=== PATIENT | male | born 1945 | race African-American/Black ===

== ENCOUNTER 2023-08-02 11:43 | Inpatient (IN) | payer OTHER ==
[2023-08-02] MEDS ORDERED: ACETAMINOPHEN INJECTION 100 ML IVPB ONE (13:22)
[2023-08-02] MEDS ORDERED: FOLIC ACID 1 MG TABLET (FP) ONE (13:22)
[2023-08-02] MEDS ORDERED: THIAMINE HCL 200 MG/2 ML VIAL ONE (13:22)
[2023-08-02] MEDS ORDERED: FAMOTIDINE 10 MG/ML VIAL IVPB ONE (13:23)
[2023-08-02] MEDS ORDERED: MAG HYDROX/AL HYDROX/SIMETH 30 ML UNIT-DOSE CUP ONE (13:23)
[2023-08-02 13:34] LABS: BASO % 0.2 % (0-2.0); EOS % 0.1 % (0-4.5); HEMOGLOBIN 8.3 GM/dL (11.7-16.9); LYMPH % 13.4 % (8-40); MCH 32.3 pg (25.7-33.7); MCHC 33.2 g/dl (32.0-35.9); MEAN CELL VOLUME 97.2 fl (80-96); MEAN PLT VOLUME 7.6 fl (7.5-11.1); MONO % 3.4 % (3.8-10.2); NEUT % 82.9 % (42.8-82.8); PLATELET COUNT 275 10^3/uL (134-434); RBC 2.57 M/mm3 (4.00-5.60); RDW 13.4 % (11.9-15.9); WHITE BLOOD COUNT 12.8 K/mm3 (4.0-10.0)
[2023-08-02 13:39] LABS: INR 1.13 (0.83-1.09); PROTHROMBIN TIME (PATIENT) 12.7 SEC (9.7-13.0)
[2023-08-02 13:41] LABS: ACTIVATED PTT 31.2 SECONDS (25.2-36.5)
[2023-08-02 13:48] LABS: THROAT:GRP A STREP NOT DETECTED (NOTDETECTED)
[2023-08-02 13:58] LABS: CALCIUM 8.4 mg/dL (8.5-10.1)
[2023-08-02] MEDS: FOLIC ACID 1 MG TABLET (FP) PO ONE (13:58)
[2023-08-02] MEDS: MAG HYDROX/AL HYDROX/SIMETH 30 ML UNIT-DOSE CUP PO ONE (13:58)
[2023-08-02 13:59] LABS: ALBUMIN 2.7 g/dl (3.4-5.0); BLOOD UREA NITROGEN 59.4 mg/dL (7-18); MAGNESIUM 2.2 mg/dL (1.8-2.4)
[2023-08-02 14:01] LABS: CREATININE 1.8 mg/dL (0.55-1.3); PHOSPHOROUS 3.2 mg/dL (2.5-4.9)
[2023-08-02 14:03] LABS: BILIRUBIN,TOTAL 0.6 mg/dL (0.2-1)
[2023-08-02 14:12] LABS: ERYTHROCYTE SEDIMENTATION RATE 125 mm/hr (0-20)
[2023-08-02] MEDS ORDERED: VANCOMYCIN 1,000 MG in DEXTROSE 5%-WATER - 250 ML IVPB ONE (14:21)
[2023-08-02] MEDS: ACETAMINOPHEN 1000 MG/100 ML BAG IVPB ONE (14:22)
[2023-08-02] MEDS: FAMOTIDINE 20 MG/50 ML IVPB 20 MG/50 ML MG IVPB ONE (14:23)
[2023-08-02] MEDS: PIPERACILLIN/TAZOB 4.5 GM 4.5 GM in DEXTROSE 5%-WATER 100 ML IVPB ONE (14:23)
[2023-08-02] MEDS: LACTATED RINGERS SOLUTION 1000 ML INFUS.BAG IV ONE (14:23)
[2023-08-02] MEDS: THIAMINE HCL 200 MG/2 ML VIAL IVPB ONE (14:23)
[2023-08-02] MEDS: VANCOMYCIN/WATER 1250 MG 1,250 MG/250 ML BAG IVPB ONE (14:23)
[2023-08-02] MEDS ORDERED: POTASSIUM CHLORIDE ORAL LIQUID 20 MEQ/15 ML ONE (14:42)
[2023-08-02] MEDS ORDERED: PIPERACILLIN/TAZOB 2.25 GM 2.25 GM/50 ML BAG IVPB ONE (14:42)
[2023-08-02] MEDS: POTASSIUM CHLORIDE ORAL LIQUID 20 MEQ/15 ML PO ONE (14:52)
[2023-08-02] MEDS: PIPERACILLIN/TAZOB 2.25 GM 2.25 GM in DEXTROSE 5%-WATER - 50 ML IVPB ONE (14:52)
[2023-08-02] MEDS ORDERED: LORazepam 1 MG TABLET PO PRN (15:40)
[2023-08-02 16:50] LABS: EPI CELLS 28 /uL (0-25.1); HYALINE CASTS 40 /uL (0-3.1); URINE APPEARANCE TURBID; URINE BACTERIA 68 /uL (0-1359); URINE BILIRUBIN NEGATIVE (NEGATIVE); URINE COLOR YELLOW; URINE GLUCOSE (UA) NEGATIVE (NEGATIVE); URINE KETONE NEGATIVE (NEGATIVE); URINE LEUK ESTERASE 3+ (NEGATIVE); URINE NITRITE NEGATIVE (NEGATIVE); URINE PROTEIN 1+ (NEGATIVE); URINE UROBILINOGEN 0.2 mg/dL (0.2-1.0); URINE WBC 19110 /uL (0-25.8)
[2023-08-02] MEDS ORDERED: REMDESIVIR 200 MG in SODIUM CHLORIDE 250 ML IVPB ONE (17:00)
[2023-08-02 17:20] LABS: URINE RBC 412.7 /uL (0-23.9)
[2023-08-02 17:21] LABS: YEAST MANY (NEGATIVE)
[2023-08-02] MEDS: THIAMINE 100 MG TABLET PO SCH (17:34)
[2023-08-02] MEDS: methaDONE HCL 10 MG TABLET PO ONE (17:34)
[2023-08-02] MEDS: KCL 10 MEQ IVPB 10 MEQ/100 ML INFUS.BAG IVPB SCH (17:37)
[2023-08-02] MEDS: FOLIC ACID INJECTION - 1 MG, THIAMINE HCL 100 MG, MULTIVIT INJECTION ADULT 10 ML in SOD... IVPB ONE (17:37)
[2023-08-02] MEDS ORDERED: VANCOMYCIN/WATER FOR INJ (PEG) 1,000 MG/200 ML BAG IVPB ONE (18:00)
[2023-08-02] MEDS: LORazepam 1 MG TABLET PO SCH (19:17)
[2023-08-02] MEDS: PIPERACILLIN/TAZOB 2.25 GM 2.25 GM in DEXTROSE 5%-WATER - 50 ML IVPB SCH (22:13)
[2023-08-02] MEDS: HEPARIN NA (PORCINE) 5,000 UNITS/ML 1ML VIAL SQ SCH (22:14)
[2023-08-02] MEDS: DEXTROSE 50%-WATER - 25 GM/50 ML VIAL IVPUSH ONE (22:19)
[2023-08-02] MEDS: VANCOMYCIN/WATER FOR INJ (PEG) 1,000 MG/200 ML BAG IVPB ONE (23:10)
[2023-08-03] MEDS: REMDESIVIR 200 MG in SODIUM CHLORIDE 250 ML IVPB ONE (01:10)
[2023-08-03] MEDS: KCL 10 MEQ IVPB 10 MEQ/100 ML INFUS.BAG IVPB SCH ×2 (01:13→18:28)
[2023-08-03 07:53] LABS: BASO % 0.2 % (0-2.0); EOS % 0.2 % (0-4.5); HEMATOCRIT 25.7 % (35.4-49); HEMOGLOBIN 8.5 GM/dL (11.7-16.9); MCH 32.4 pg (25.7-33.7); MCHC 33.1 g/dl (32.0-35.9); MEAN CELL VOLUME 97.8 fl (80-96); MONO % 3.9 % (3.8-10.2); NEUT % 80.7 % (42.8-82.8); PLATELET COUNT 239 10^3/uL (134-434); RBC 2.62 M/mm3 (4.00-5.60); RDW 13.1 % (11.9-15.9); WHITE BLOOD COUNT 10.5 K/mm3 (4.0-10.0)
[2023-08-03 08:11] LABS: POTASSIUM 3.3 mmol/L (3.5-5.1)
[2023-08-03 08:13] LABS: CALCIUM 7.5 mg/dL (8.5-10.1)
[2023-08-03 08:14] LABS: ALBUMIN 2.4 g/dl (3.4-5.0); MAGNESIUM 1.9 mg/dL (1.8-2.4)
[2023-08-03 08:16] LABS: CREATININE 1.4 mg/dL (0.55-1.3); PHOSPHOROUS 2.1 mg/dL (2.5-4.9)
[2023-08-03 08:18] LABS: BILIRUBIN,TOTAL 0.4 mg/dL (0.2-1); LDL CHOLESTEROL (ONLY SJRH) 46 mg/dL (5-100); TOT PROT 7.3 g/dl (6.4-8.2)
[2023-08-03 08:19] LABS: CHOLESTEROL 101 mg/dL (50-200); HDL CHOLESTEROL 47 mg/dL (40-60)
[2023-08-03] MEDS: FOLIC ACID 1 MG TABLET (FP) PO SCH (09:48)
[2023-08-03] MEDS: REMDESIVIR 100 MG in SODIUM CHLORIDE 250 ML IVPB SCH (09:49)
[2023-08-03 11:15] LABS: COCAINE, UR NEGATIVE (NEGATIVE); OPIATES, URI NEGATIVE (NEGATIVE); PHENCYCLIDINE,URINE NEGATIVE (NEGATIVE); URINE AMPHETAMINES NEGATIVE (NEGATIVE); URINE BARBITURATES NEGATIVE (NEGATIVE); URINE BENZODIAZEPINES NEGATIVE (NEGATIVE)
[2023-08-03 13:32] LABS: METHADONE, UR POSITIVE (NEGATIVE)
[2023-08-03 14:41] LABS: GAMMA GLUTAMYL TRANSPEPTIDASE 294 U/L (5-85)
[2023-08-03 15:14] LABS: HIV INTERPRETATION NEGATIVE (NEGATIVE)
[2023-08-03] MEDS: NAPH,MB-DB/K PH,MBDB POWDER PACKET PO ONE (18:03)
[2023-08-03] MEDS: PIPERACILLIN/TAZOB 2.25 GM 2.25 GM in DEXTROSE 5%-WATER - 50 ML IVPB SCH (18:04)
[2023-08-03 18:09] LABS: ARTERIAL BLD GAS O2 SATURATION 98.3 % (95-98); ARTERIAL BLOOD GAS BASE EXCESS 1.7 mmol/L (-2-2); ARTERIAL BLOOD GAS PO2 107.7 mmHg (80-100)
[2023-08-03 18:10] LABS: ALLENS TEST POSITIVE
[2023-08-03] MEDS: DEXTROSE 5%-0.45% SALINE 1,000 ML IV SCH (18:26)
[2023-08-03] MEDS: DEXTROSE 5%-LACTATED RINGERS 1,000 ML IV SCH (18:27)
[2023-08-03] MEDS: POTASSIUM PHOSPHATE 30 MM in SODIUM CHLORIDE 500 ML IVPB ONE (21:53)
[2023-08-03] MEDS ORDERED: VANCOMYCIN/WATER FOR INJ (PEG) 1,000 MG/200 ML BAG IVPB SCH (22:30)
[2023-08-04] MEDS: LORazepam 1 MG TABLET PO SCH (05:39)
[2023-08-04 08:15] LABS: HEMATOCRIT 28.2 % (35.4-49); HEMOGLOBIN 9.3 GM/dL (11.7-16.9); MCH 31.8 pg (25.7-33.7); MCHC 33.1 g/dl (32.0-35.9); MEAN CELL VOLUME 96.2 fl (80-96); MEAN PLT VOLUME 8.1 fl (7.5-11.1); PLATELET COUNT 360 10^3/uL (134-434); RBC 2.94 M/mm3 (4.00-5.60); RDW 13.1 % (11.9-15.9); WHITE BLOOD COUNT 11.2 K/mm3 (4.0-10.0)
[2023-08-04 08:36] LABS: POTASSIUM 3.4 mmol/L (3.5-5.1)
[2023-08-04 08:42] LABS: ALBUMIN 2.5 g/dl (3.4-5.0); BLOOD UREA NITROGEN 45.7 mg/dL (7-18); CALCIUM 7.5 mg/dL (8.5-10.1); MAGNESIUM 1.8 mg/dL (1.8-2.4)
[2023-08-04 08:45] LABS: CREATININE 1.2 mg/dL (0.55-1.3); PHOSPHOROUS 4.9 mg/dL (2.5-4.9)
[2023-08-04 08:47] LABS: BILIRUBIN,TOTAL 1.1 mg/dL (0.2-1); TOT PROT 7.8 g/dl (6.4-8.2)
[2023-08-04] MEDS: POTASSIUM CHLORIDE ORAL LIQUID 20 MEQ/15 ML PO ONE (09:49)
[2023-08-04] MEDS: methaDONE HCL 10 MG TABLET PO ONE ×2 (10:12→15:38)
[2023-08-04] MEDS: COLLAGENASE CLOSTRIDIUM HIST. 30 GRAMS TUBE TP SCH (14:31)
[2023-08-04] MEDS: AMINO ACIDS/PROTEIN HYDROLYS 30 ML LIQUID.PKT PO SCH (16:35)
[2023-08-04] MEDS: cloNIDine HCL 0.1 MG TABLET PO PRN (16:35)
[2023-08-04] MEDS: CEFAZOLIN 1 GM in DEXTROSE 5%-WATER - 50 ML IVPB SCH (18:34)
[2023-08-04] MEDS: PIPERACILLIN/TAZOB 2.25 GM 2.25 GM in DEXTROSE 5%-WATER - 50 ML IVPB SCH (21:32)
[2023-08-04] MEDS: VANCOMYCIN 1,000 MG in DEXTROSE 5%-WATER - 250 ML IVPB SCH (21:34)
[2023-08-05] MEDS ORDERED: LORazepam 0.5 MG TABLET PO PRN
[2023-08-05] MEDS: LORazepam 0.5 MG TABLET PO SCH (06:15)
[2023-08-05 09:24] LABS: BASO % 0.4 % (0-2.0); HEMATOCRIT 26.9 % (35.4-49); HEMOGLOBIN 8.9 GM/dL (11.7-16.9); LYMPH % 9.7 % (8-40); MCH 32.2 pg (25.7-33.7); MCHC 33.2 g/dl (32.0-35.9); MEAN CELL VOLUME 96.8 fl (80-96); MEAN PLT VOLUME 8.1 fl (7.5-11.1); MONO % 2.9 % (3.8-10.2); PLATELET COUNT 349 10^3/uL (134-434); RBC 2.78 M/mm3 (4.00-5.60); RDW 13.4 % (11.9-15.9); WHITE BLOOD COUNT 12.7 K/mm3 (4.0-10.0)
[2023-08-05] MEDS: methaDONE 40 MG, methaDONE 10 MG PO ONE (09:38)
[2023-08-05] MEDS: methaDONE HCL 10 MG TABLET PO ONE (09:44)
[2023-08-05 09:54] LABS: ALBUMIN 2.7 g/dl (3.4-5.0)
[2023-08-05 09:57] LABS: BLOOD UREA NITROGEN 60.3 mg/dL (7-18)
[2023-08-05 09:59] LABS: MAGNESIUM 2.1 mg/dL (1.8-2.4)
[2023-08-05 10:00] LABS: CREATININE 1.2 mg/dL (0.55-1.3); PHOSPHOROUS 4.9 mg/dL (2.5-4.9)
[2023-08-05 10:01] LABS: BILIRUBIN,TOTAL 1.1 mg/dL (0.2-1); TOT PROT 8.4 g/dl (6.4-8.2)
[2023-08-05] MEDS: REMDESIVIR 100 MG in SODIUM CHLORIDE 250 ML IVPB SCH (10:26)
[2023-08-05 10:57] LABS: BILIRUBIN,DIRECT 0.6 mg/dL (0.0-0.2)
[2023-08-05] MEDS ORDERED: QUEtiapine FUMARATE 25 MG TABLET PO ONE (11:55)
[2023-08-05 11:57] LABS: ARTERIAL BLD GAS O2 SATURATION 89.1 % (95-98); ARTERIAL BLOOD GAS BASE EXCESS -0.6 mmol/L (-2-2); ARTERIAL BLOOD GAS pH 7.429 (7.350-7.450)
[2023-08-05 11:58] LABS: ALLENS TEST POSITIVE
[2023-08-05] MEDS: QUEtiapine FUMARATE 25 MG TABLET PO ONE ×2 (12:08→12:09)
[2023-08-05] MEDS: HALOPERIDOL LACTATE 5 MG/ML IM ONE (12:31)
[2023-08-05] MEDS ORDERED: HALOPERIDOL LACTATE 5 MG/ML IM PRN (13:05)
[2023-08-05] MEDS: AMINO ACIDS 4.25%/D5W 1,000 ML IV SCH (17:49)
[2023-08-05] MEDS: SODIUM CHLORIDE 1,000 ML IV SCH (17:49)
[2023-08-05] MEDS: FAT EMULSION/OLIVE/SOY/PHOSPHO 250 ML IV SCH (21:52)
[2023-08-05] MEDS ORDERED: FAT EMULSION/OLIVE/SOY (CLINOLIPID) 250 ML EMULSION IV SCH (22:00)
[2023-08-06] MEDS: LORazepam 0.5 MG TABLET PO ONE (05:55)
[2023-08-06 08:35] LABS: HEMATOCRIT 28.8 % (35.4-49); HEMOGLOBIN 9.4 GM/dL (11.7-16.9); MCH 32.2 pg (25.7-33.7); MCHC 32.6 g/dl (32.0-35.9); MEAN CELL VOLUME 98.9 fl (80-96); MEAN PLT VOLUME 8.4 fl (7.5-11.1); PLATELET COUNT 239 10^3/uL (134-434); RBC 2.91 M/mm3 (4.00-5.60); RDW 13.6 % (11.9-15.9); WHITE BLOOD COUNT 20.8 K/mm3 (4.0-10.0)
[2023-08-06 08:56] LABS: CHLORIDE 107 mmol/L (98-107); POTASSIUM 4.3 mmol/L (3.5-5.1); SODIUM 140 mmol/L (136-145)
[2023-08-06 08:59] LABS: CALCIUM 7.6 mg/dL (8.5-10.1)
[2023-08-06 09:00] LABS: ALBUMIN 2.4 g/dl (3.4-5.0); ANION GAP 14 mmol/L (4-13); BLOOD UREA NITROGEN 80.1 mg/dL (7-18); CO2 19 mmol/L (21-32); MAGNESIUM 2.1 mg/dL (1.8-2.4)
[2023-08-06 09:02] LABS: PHOSPHOROUS 6.5 mg/dL (2.5-4.9); SGPT/ALT 250 U/L (13-61)
[2023-08-06 09:03] LABS: CREATININE 1.5 mg/dL (0.55-1.3); SGOT/AST 503 U/L (15-37)
[2023-08-06 09:06] LABS: BILIRUBIN,TOTAL 1.6 mg/dL (0.2-1)
[2023-08-06 09:10] LABS: ALK PHOS > 1000 U/L (45-117); GLUCOSE,RANDOM 41 mg/dL (74-106)
[2023-08-06] MEDS: DEXTROSE 50%-WATER 25 GM/50 ML DISP.SYRIN IVPUSH ONE ×2 (09:24→21:49)
[2023-08-06] MEDS ORDERED: methaDONE HCL 10 MG TABLET PO ONE (10:00)
[2023-08-06] MEDS ORDERED: PIPERACILLIN/TAZOB 3.375 GM 3.375 GM in DEXTROSE 5%-WATER - 50 ML IVPB SCH (10:00)
[2023-08-06] MEDS: PIPERACILLIN/TAZOB 3.375 GM 3.375 GM in DEXTROSE 5%-WATER - 50 ML IVPB SCH ×2 (10:14→18:54)
[2023-08-06] MEDS: DEXTROSE 5%-NORMAL SALINE 1,000 ML IV SCH (10:15)
[2023-08-06 10:43] LABS: INR 1.88 (0.83-1.09); PROTHROMBIN TIME (PATIENT) 20.9 SEC (9.7-13.0)
[2023-08-06 11:07] LABS: LACTIC ACID 9.3 mmol/L (0.4-2.0)
[2023-08-06] MEDS: LACTATED RINGERS SOLUTION 1,000 ML/1,000 ML INFUS.BAG IV STA ×2 (11:45→13:05)
[2023-08-06] MEDS: DEXMEDETOMIDINE PREMIX 400 MCG/100 ML BAG IVPB SCH (14:31)
[2023-08-06] MEDS: DEXTROSE 5%-LACTATED RINGERS 1,000 ML IV SCH (14:32)
[2023-08-06] MEDS ORDERED: HALOPERIDOL LACTATE 5 MG/ML IM PRN (14:34)
[2023-08-06] MEDS: MUPIROCIN 2% TOPICAL OINTMENT FOR DECOLONIZATION NS SCH (14:45)
[2023-08-06 15:17] LABS: EPI CELLS 6 /uL (0-25.1); HYALINE CASTS 9 /uL (0-3.1); URINE APPEARANCE TURBID; URINE BACTERIA 257 /uL (0-1359); URINE BILIRUBIN NEGATIVE (NEGATIVE); URINE COLOR YELLOW; URINE GLUCOSE (UA) NEGATIVE (NEGATIVE); URINE KETONE NEGATIVE (NEGATIVE); URINE LEUK ESTERASE 3+ (NEGATIVE); URINE NITRITE NEGATIVE (NEGATIVE); URINE PROTEIN 1+ (NEGATIVE); URINE UROBILINOGEN 0.2 mg/dL (0.2-1.0); URINE WBC 20367 /uL (0-25.8)
[2023-08-06 15:51] LABS: URINE RBC 1076.6 /uL (0-23.9); YEAST PRESENT (NEGATIVE)
[2023-08-06] MEDS: AMINO ACIDS 4.25%/D5W 1,000 ML IV SCH (17:02)
[2023-08-06] MEDS: AMINO ACIDS/PROTEIN HYDROLYS 30 ML LIQUID.PKT PO SCH (17:02)
[2023-08-06] MEDS ORDERED: DEXTROSE 50%-WATER 25 GM/50 ML DISP.SYRIN ONE ×2 (18:15→21:32)
[2023-08-06] MEDS: DEXTROSE 50%-WATER - 25 GM/50 ML VIAL IVPUSH ONE (18:18)
[2023-08-06 18:43] LABS: INR 2.05 (0.83-1.09); PROTHROMBIN TIME (PATIENT) 22.7 SEC (9.7-13.0)
[2023-08-06 18:44] LABS: CHLORIDE 108 mmol/L (98-107); POTASSIUM 3.7 mmol/L (3.5-5.1); SODIUM 139 mmol/L (136-145)
[2023-08-06 18:46] LABS: ANION GAP 9 mmol/L (4-13); CO2 22 mmol/L (21-32)
[2023-08-06 18:49] LABS: CREATININE 1.7 mg/dL (0.55-1.3)
[2023-08-06 18:51] LABS: GLUCOSE,RANDOM 46 mg/dL (74-106)
[2023-08-06] MEDS: HEPARIN NA (PORCINE) 5,000 UNITS/ML 1ML VIAL SQ SCH (21:33)
[2023-08-06] MEDS: NOREPINEPHRINE BITARTRATE/D5W 8 MG/250 ML BAG IVPB SCH (21:33)
[2023-08-06] MEDS: CHLORHEXIDINE GLUCONATE 4% CLEANSER FOR DECOLONIZATION TP SCH (21:34)
[2023-08-06] MEDS: DEXTROSE 10%-WATER - 1,000 ML IV SCH (21:49)
[2023-08-06] MEDS ORDERED: FAT EMULSION/OLIVE/SOY/PHOSPHO 250 ML IV SCH (22:00)
[2023-08-06 22:09] LABS: LACTIC ACID 4.2 mmol/L (0.4-2.0)
[2023-08-07] MEDS: DEXTROSE 50%-WATER 25 GM/50 ML DISP.SYRIN IVPUSH PRN (01:11)
[2023-08-07 06:19] LABS: HEMATOCRIT 20.5 % (35.4-49); MCH 32.1 pg (25.7-33.7); MCHC 33.4 g/dl (32.0-35.9); MEAN PLT VOLUME 8.9 fl (7.5-11.1); PLATELET COUNT 122 10^3/uL (134-434); RBC 2.13 M/mm3 (4.00-5.60); RDW 13.4 % (11.9-15.9)
[2023-08-07 06:20] LABS: CHLORIDE 110 mmol/L (98-107); POTASSIUM 3.3 mmol/L (3.5-5.1); SODIUM 142 mmol/L (136-145)
[2023-08-07 06:22] LABS: INR 1.89 (0.83-1.09)
[2023-08-07 06:23] LABS: ANION GAP 9 mmol/L (4-13); CO2 22 mmol/L (21-32); MAGNESIUM 1.7 mg/dL (1.8-2.4)
[2023-08-07 06:25] LABS: ACTIVATED PTT 46.4 SECONDS (25.2-36.5)
[2023-08-07 06:26] LABS: CREATININE 1.8 mg/dL (0.55-1.3); PHOSPHOROUS 3.7 mg/dL (2.5-4.9); SGOT/AST 478 U/L (15-37); SGPT/ALT 133 U/L (13-61)
[2023-08-07 06:27] LABS: BILIRUBIN,TOTAL 0.8 mg/dL (0.2-1); TOT PROT 5.5 g/dl (6.4-8.2)
[2023-08-07 06:29] LABS: HEMOGLOBIN 6.8 GM/dL (11.7-16.9)
[2023-08-07 06:31] LABS: ALBUMIN 1.9 g/dl (3.4-5.0); ALK PHOS 676 U/L (45-117); CALCIUM 6.4 mg/dL (8.5-10.1); GLUCOSE,RANDOM 46 mg/dL (74-106)
[2023-08-07 06:32] LABS: LACTIC ACID 3.3 mmol/L (0.4-2.0)
[2023-08-07] MEDS: MAGNESIUM 1GM/D5W - 1 GM/100 ML IVPB IVPB ONE (07:59)
[2023-08-07] MEDS: CALCIUM GLUC IN NACL, ISO-OSM 1 GM/50 ML BAG IVPB ONE (08:17)
[2023-08-07] MEDS: DEXTROSE 50%-WATER - 25 GM/50 ML VIAL IVPUSH ONE ×2 (08:18→13:53)
[2023-08-07] MEDS ORDERED: THIAMINE 100 MG TABLET PO SCH (10:00)
[2023-08-07] MEDS: REMDESIVIR 100 MG in SODIUM CHLORIDE 250 ML IVPB SCH (11:13)
[2023-08-07] MEDS ORDERED: PHYTONADIONE 5 MG TABLET PO ONE (12:15)
[2023-08-07] MEDS: KCL 20 MEQ PREMIX BAG 20 MEQ/100 ML INFUS.BAG IVPB SCH (12:22)
[2023-08-07] MEDS: COLLAGENASE CLOSTRIDIUM HIST. 30 GRAMS TUBE TP SCH (12:26)
[2023-08-07] MEDS: FOLIC ACID 1 MG TABLET (FP) PO SCH (12:27)
[2023-08-07] MEDS ORDERED: DEXTROSE 50%-WATER 25 GM/50 ML DISP.SYRIN ONE (13:21)
[2023-08-07 13:25] VITALS: BMI 13.1
[2023-08-07 14:14] LABS: HEMATOCRIT 25.4 % (35.4-49); HEMOGLOBIN 8.6 GM/dL (11.7-16.9); MCHC 33.8 g/dl (32.0-35.9); MEAN CELL VOLUME 94.7 fl (80-96); MEAN PLT VOLUME 9.2 fl (7.5-11.1); PLATELET COUNT 109 10^3/uL (134-434); RBC 2.68 M/mm3 (4.00-5.60); RDW 14.1 % (11.9-15.9); WHITE BLOOD COUNT 19.5 K/mm3 (4.0-10.0)
[2023-08-07 14:28] LABS: POTASSIUM 3.5 mmol/L (3.5-5.1)
[2023-08-07 14:31] LABS: CALCIUM 7.2 mg/dL (8.5-10.1)
[2023-08-07 14:32] LABS: MAGNESIUM 2.4 mg/dL (1.8-2.4)
[2023-08-07 14:35] LABS: CREATININE 1.7 mg/dL (0.55-1.3)
[2023-08-07 14:36] LABS: PHOSPHOROUS 4.1 mg/dL (2.5-4.9)
[2023-08-07] MEDS: AMINO ACIDS 4.25%/D5W 1,000 ML IV SCH (15:28)
[2023-08-07] MEDS: PHYTONADIONE 10 MG/1 ML AMP IVPB ONE (15:28)
[2023-08-08 06:31] LABS: HEMATOCRIT 27.2 % (35.4-49); HEMOGLOBIN 8.9 GM/dL (11.7-16.9); MCH 31.2 pg (25.7-33.7); MCHC 32.9 g/dl (32.0-35.9); MEAN CELL VOLUME 94.7 fl (80-96); MEAN PLT VOLUME 9.7 fl (7.5-11.1); PLATELET COUNT 96 10^3/uL (134-434); RBC 2.87 M/mm3 (4.00-5.60); RDW 15.8 % (11.9-15.9); WHITE BLOOD COUNT 18.8 K/mm3 (4.0-10.0)
[2023-08-08 06:38] LABS: INR 1.49 (0.83-1.09); PROTHROMBIN TIME (PATIENT) 16.6 SEC (9.7-13.0)
[2023-08-08 06:40] LABS: ACTIVATED PTT 50.6 SECONDS (25.2-36.5)
[2023-08-08 06:46] LABS: POTASSIUM 3.4 mmol/L (3.5-5.1)
[2023-08-08 06:48] LABS: CALCIUM 7.5 mg/dL (8.5-10.1)
[2023-08-08 06:49] LABS: ALBUMIN 1.8 g/dl (3.4-5.0); BLOOD UREA NITROGEN 86.5 mg/dL (7-18); MAGNESIUM 2.1 mg/dL (1.8-2.4)
[2023-08-08 06:52] LABS: CREATININE 1.9 mg/dL (0.55-1.3); PHOSPHOROUS 3.9 mg/dL (2.5-4.9)
[2023-08-08 06:54] LABS: TOT PROT 5.4 g/dl (6.4-8.2)
[2023-08-08 06:56] LABS: BILIRUBIN,TOTAL 0.8 mg/dL (0.2-1)
[2023-08-08] MEDS: THIAMINE HCL 200 MG/2 ML VIAL IVPB SCH (10:43)
[2023-08-09 06:28] LABS: HEMOGLOBIN 8.6 GM/dL (11.7-16.9); MCH 31.4 pg (25.7-33.7); MCHC 33.2 g/dl (32.0-35.9); MEAN CELL VOLUME 94.8 fl (80-96); MEAN PLT VOLUME 9.3 fl (7.5-11.1); PLATELET COUNT 83 10^3/uL (134-434); RBC 2.75 M/mm3 (4.00-5.60); RDW 15.8 % (11.9-15.9); WHITE BLOOD COUNT 18.8 K/mm3 (4.0-10.0)
[2023-08-09 06:38] LABS: POTASSIUM 3.3 mmol/L (3.5-5.1)
[2023-08-09 06:40] LABS: CALCIUM 7.3 mg/dL (8.5-10.1)
[2023-08-09 06:41] LABS: ALBUMIN 1.7 g/dl (3.4-5.0); BLOOD UREA NITROGEN 103.9 mg/dL (7-18); MAGNESIUM 2.1 mg/dL (1.8-2.4)
[2023-08-09 06:44] LABS: PHOSPHOROUS 3.6 mg/dL (2.5-4.9)
[2023-08-09 06:45] LABS: TOT PROT 5.4 g/dl (6.4-8.2)
[2023-08-09 06:46] LABS: BILIRUBIN,TOTAL 1.3 mg/dL (0.2-1)
[2023-08-09] MEDS: DEXTROSE 10%-WATER - 1,000 ML IV SCH (08:01)
[2023-08-09] MEDS: KCL 10 MEQ IVPB 10 MEQ/100 ML INFUS.BAG IVPB SCH (08:19)
[2023-08-09 09:09] LABS: INR 1.23 (0.83-1.09); PROTHROMBIN TIME (PATIENT) 13.8 SEC (9.7-13.0)
[2023-08-09] MEDS: LACTULOSE 20 GM/30 ML UDC (FOR RECTAL USE ONLY) PR SCH (13:38)
[2023-08-10 06:55] LABS: HEMATOCRIT 26.2 % (35.4-49); HEMOGLOBIN 8.5 GM/dL (11.7-16.9); MCH 30.9 pg (25.7-33.7); MCHC 32.5 g/dl (32.0-35.9); MEAN CELL VOLUME 95.1 fl (80-96); MEAN PLT VOLUME 10.8 fl (7.5-11.1); PLATELET COUNT 77 10^3/uL (134-434); RBC 2.76 M/mm3 (4.00-5.60); RDW 15.5 % (11.9-15.9); WHITE BLOOD COUNT 15.9 K/mm3 (4.0-10.0)
[2023-08-10 07:01] LABS: INR 1.22 (0.83-1.09); PROTHROMBIN TIME (PATIENT) 13.7 SEC (9.7-13.0)
[2023-08-10 07:09] LABS: CHLORIDE 110 mmol/L (98-107); POTASSIUM 3.7 mmol/L (3.5-5.1); SODIUM 140 mmol/L (136-145)
[2023-08-10 07:12] LABS: ALBUMIN 1.6 g/dl (3.4-5.0); ANION GAP 14 mmol/L (4-13); CO2 16 mmol/L (21-32); GLUCOSE,RANDOM 175 mg/dL (74-106); MAGNESIUM 2.6 mg/dL (1.8-2.4)
[2023-08-10 07:15] LABS: CREATININE 2.5 mg/dL (0.55-1.3); PHOSPHOROUS 4.8 mg/dL (2.5-4.9); SGOT/AST 243 U/L (15-37); SGPT/ALT 53 U/L (13-61)
[2023-08-10 07:16] LABS: BILIRUBIN,TOTAL 1.8 mg/dL (0.2-1); TOT PROT 5.3 g/dl (6.4-8.2)
[2023-08-10 07:34] LABS: ALK PHOS 391 U/L (45-117); BLOOD UREA NITROGEN 119.4 mg/dL (7-18); CALCIUM 8.8 mg/dL (8.5-10.1)
[2023-08-10] MEDS: LACTATED RINGERS SOLUTION 1000 ML INFUS.BAG IV ONE (08:15)
[2023-08-10] MEDS: LACTATED RINGERS SOLUTION 1,000 ML/1,000 ML INFUS.BAG IV STA (09:51)
[2023-08-10] MEDS ORDERED: morphine SULFATE 4 MG/ML VIAL IVPUSH PRN ×2 (10:26→11:35)
[2023-08-10] MEDS ORDERED: HALOPERIDOL LACTATE 5 MG/ML IM PRN (19:50)
[2023-08-10] MEDS: DEXTROSE 10%-WATER - 1,000 ML IV SCH (20:45)
[2023-08-10] MEDS ORDERED: CHLORHEXIDINE GLUCONATE 4% CLEANSER FOR DECOLONIZATION TP SCH (22:00)
[2023-08-10] MEDS ORDERED: MUPIROCIN 2% TOPICAL OINTMENT FOR DECOLONIZATION NS SCH (22:00)
[2023-08-10] MEDS: AMINO ACIDS 4.25%/D5W 1,000 ML IV SCH (23:22)
[2023-08-10] MEDS: DEXTROSE 50%-WATER 25 GM/50 ML DISP.SYRIN IVPUSH PRN (23:53)
[2023-08-11] MEDS: PIPERACILLIN/TAZOB 3.375 GM 3.375 GM in DEXTROSE 5%-WATER - 50 ML IVPB SCH (02:34)
[2023-08-11] MEDS ORDERED: THIAMINE HCL 200 MG/2 ML VIAL IVPB SCH (10:00)
[2023-08-11] MEDS: THIAMINE HCL 200 MG/2 ML VIAL IVPB SCH (10:04)
[2023-08-11] MEDS: COLLAGENASE CLOSTRIDIUM HIST. 30 GRAMS TUBE TP SCH (10:14)
[2023-08-11 10:39] LABS: HEMATOCRIT 21.8 % (35.4-49); HEMOGLOBIN 7.1 GM/dL (11.7-16.9); MCH 30.7 pg (25.7-33.7); MCHC 32.6 g/dl (32.0-35.9); MEAN CELL VOLUME 94.3 fl (80-96); PLATELET COUNT 42 10^3/uL (134-434); RBC 2.31 M/mm3 (4.00-5.60); RDW 15.1 % (11.9-15.9)
[2023-08-11] MEDS: INSULIN ASPART SLIDING SCALE (NOVOLOG) 1 VIAL SQ SCH (11:14)
[2023-08-11 11:26] LABS: ANISOCYTOSIS 0; MACROCYTOSIS 0
[2023-08-11] MEDS: LACTULOSE 20 GM/30 ML UDC (FOR RECTAL USE ONLY) PR SCH (11:53)
[2023-08-12] MEDS ORDERED: DEXTROSE 10%-WATER - 1,000 ML IV SCH (02:00)
[2023-08-12] MEDS: DEXTROSE 10%-WATER - 1,000 ML IV SCH (03:00)
[2023-08-12] MEDS: SODIUM CHLORIDE 1,000 ML IV STA (03:59)
[2023-08-12] MEDS ORDERED: TAMSULOSIN HCL 0.4 MG CAP PO SCH (08:30)
[2023-08-12 09:55] LABS: HEMATOCRIT 18.8 % (35.4-49); MCH 30.9 pg (25.7-33.7); MCHC 33.1 g/dl (32.0-35.9); MEAN CELL VOLUME 93.1 fl (80-96); MEAN PLT VOLUME 10.4 fl (7.5-11.1); RBC 2.02 M/mm3 (4.00-5.60); RDW 15.2 % (11.9-15.9); WHITE BLOOD COUNT 16.9 K/mm3 (4.0-10.0)
[2023-08-12 10:02] LABS: CHLORIDE 105 mmol/L (98-107); POTASSIUM 3.2 mmol/L (3.5-5.1); SODIUM 136 mmol/L (136-145)
[2023-08-12 10:04] LABS: ALBUMIN 1.4 g/dl (3.4-5.0); ANION GAP 13 mmol/L (4-13); CO2 17 mmol/L (21-32); GLUCOSE,RANDOM 137 mg/dL (74-106)
[2023-08-12 10:07] LABS: CREATININE 3.2 mg/dL (0.55-1.3); HEMOGLOBIN 6.2 GM/dL (11.7-16.9); PLATELET COUNT 33 10^3/uL (134-434); SGOT/AST 394 U/L (15-37); SGPT/ALT 79 U/L (13-61)
[2023-08-12 10:09] LABS: BILIRUBIN,TOTAL 1.3 mg/dL (0.2-1); TOT PROT 4.8 g/dl (6.4-8.2)
[2023-08-12 10:16] LABS: ALK PHOS 258 U/L (45-117); CALCIUM 7.3 mg/dL (8.5-10.1)
[2023-08-12 10:55] LABS: ANISOCYTOSIS 1+; MACROCYTOSIS 0
[2023-08-12 10:57] LABS: PLATELET ESTIMATE DECREASED
[2023-08-13] MEDS: SODIUM CHLORIDE 0.9% 500 ML INFUS.BAG IV ONE (02:35)
[2023-08-13 02:45] VITALS: RESP 24; TEMP 98
[2023-08-13 02:47] VITALS: BP 104/59; PULSE 71
== END 2023-08-13 03:00 | disposition expired | DRG 871 ==
LOC: JER 11:43 → JERBED 14:23 → J6S 15:03 → JICU 08-06 13:55 → J6S 08-10 19:34
PROVIDERS: ADMIT Internal Medicine; ATTEND Internal Medicine
PROC: 05HF33Z Insertion of Infusion Device into Left Cephalic Vein, Percutaneous Approach (ICD-10-PCS; 2023-08-02)
PROC: XW033E5 Introduction of Remdesivir Anti-infective into Peripheral Vein, Percutaneous Approach, New Technology Group 5 (ICD-10-PCS; 2023-08-02)
PROC: 05HM33Z Insertion of Infusion Device into Right Internal Jugular Vein, Percutaneous Approach (ICD-10-PCS; 2023-08-04)
PROC: B543ZZA Ultrasonography of Right Jugular Veins, Guidance (ICD-10-PCS; 2023-08-04)
PROC: 0F9430Z Drainage of Gallbladder with Drainage Device, Percutaneous Approach (ICD-10-PCS; principal; 2023-08-06)
PROC: 30233L1 Transfusion of Nonautologous Fresh Plasma into Peripheral Vein, Percutaneous Approach (ICD-10-PCS; 2023-08-06)
PROC: 30233K1 Transfusion of Nonautologous Frozen Plasma into Peripheral Vein, Percutaneous Approach (ICD-10-PCS; 2023-08-06)
PROC: 30233N1 Transfusion of Nonautologous Red Blood Cells into Peripheral Vein, Percutaneous Approach (ICD-10-PCS; 2023-08-07)
DX: A41.9 Sepsis, unspecified organism (principal); E43 Unspecified severe protein-calorie malnutrition; U07.1 COVID-19; G93.41 Metabolic encephalopathy; J96.01 Acute respiratory failure with hypoxia; R65.21 Severe sepsis with septic shock; R64 Cachexia; N17.9 Acute kidney failure, unspecified; E11.52 Type 2 diabetes mellitus with diabetic peripheral angiopathy with gangrene; F10.239 Alcohol dependence with withdrawal, unspecified; L97.909 Non-pressure chronic ulcer of unspecified part of unspecified lower leg with unspecified severity; Z68.1 Body mass index [BMI] 19.9 or less, adult; R17 Unspecified jaundice; K83.09 Other cholangitis; J82.89 Other pulmonary eosinophilia, not elsewhere classified; E87.20 Acidosis, unspecified; N13.30 Unspecified hydronephrosis; D68.9 Coagulation defect, unspecified; I10 Essential (primary) hypertension; L97.519 Non-pressure chronic ulcer of other part of right foot with unspecified severity; F19.10 Other psychoactive substance abuse, uncomplicated; K21.9 Gastro-esophageal reflux disease without esophagitis; E87.6 Hypokalemia; K83.8 Other specified diseases of biliary tract; D64.9 Anemia, unspecified; R74.01 Elevation of levels of liver transaminase levels; D69.6 Thrombocytopenia, unspecified; R33.9 Retention of urine, unspecified; I95.9 Hypotension, unspecified
CPT/HCPCS: 0241U-QW; 36415; 36430; 36600; 47490; 70450-TC; 71045-TC-FY; 71260-TC; 73630-TC-RT-FY; 74177-TC; 76700-TC; 80048; 80053; 80061; 80307; 81003; 82140; 82248; 82272; 82550; 82553; 82570; 82803; 82962; 82977; 83036; 83605; 83690; 83735; 84100; 84300; 85025; 85027; 85384; 85610; 85651; 85730; 86140; 86480; 86705; 86708; 86803; 86850; 86900; 86901; 86922; 87040; 87070; 87075; 87086; 87102; 87205; 87210; 87340; 87389; 87517; 87522; 87651; 93005; 93010; 99285-25; G0463; G0480; J0131; J0248; J1644; P9017; P9038; P9058; Q9967